=== PATIENT | female | born 1985 | race Caucasian/White ===

== ENCOUNTER 2021-06-04 14:58 | Observation (INO) ==
[2021-06-04] MEDS ORDERED: *HR* HYDROmorphone (PF) 1 MG/ML SYRINGE IVP PRN (16:33)
[2021-06-04] MEDS ORDERED: Ringers Solution, Lactated 1,000 ML IVC SCH (16:45)
[2021-06-04] MEDS ORDERED: Bupivacaine/EPI 1:200k 0.25% 50 ML VIAL ONE (18:22)
[2021-06-04] MEDS ORDERED: *HR* Propofol 200 MG/20 ML VIAL IVP ONE (18:57)
[2021-06-04] MEDS ORDERED: *HR* Rocuronium Bromide 50 MG/5 ML VIAL ONE ×2 (19:00→20:31)
[2021-06-04] MEDS ORDERED: Ondansetron 4 MG/2 ML VIAL ONE (19:00)
[2021-06-04] MEDS ORDERED: Lidocaine -MPF 2% 2 ML VIAL ONE (19:00)
[2021-06-04] MEDS ORDERED: Famotidine 20 MG/2 ML VIAL IVP ONE (19:41)
[2021-06-04] MEDS ORDERED: Scopolamine Patch 1.5 MG PATCH.TD72 TD ONE (19:41)
[2021-06-04] MEDS ORDERED: Albuterol 2.5 MG/3 ML NEBULIZER IH PRN (19:46)
[2021-06-04] MEDS ORDERED: Promethazine 6.25 MG in Water for inj. (sterile) 20 ML IVPB PRN (19:46)
[2021-06-04] MEDS ORDERED: *HR* OxyCODONE Immed Rel 5 MG TABLET PO PRN (19:46)
[2021-06-04] MEDS ORDERED: *HR* Labetalol 20 MG/4 ML SYRINGE IVP PRN (19:46)
[2021-06-04] MEDS ORDERED: *HR* HYDROmorphone PF 0.5 MG/0.5 ML SYRINGE IVP PRN (19:46)
[2021-06-04] MEDS ORDERED: Metoclopramide 10 MG/2 ML VIAL IVP PRN (19:46)
[2021-06-04] MEDS ORDERED: Ketorolac 30 MG/ML VIAL IVP PRN (19:46)
[2021-06-04] MEDS ORDERED: *HR* FentaNYL (PF) 100 MCG/2 ML VIAL ONE ×3 (20:08→21:45)
[2021-06-04] MEDS ORDERED: ceFAZolin 2,000 MG in Water for inj. (sterile) 20 ML IVP ONE (20:27)
[2021-06-04] MEDS ORDERED: Acetaminophen IV 1,000 MG/100 ML BAG IVPB ONE (21:06)
[2021-06-04] MEDS ORDERED: Sugammadex Sodium 200 MG/2 ML VIAL IV ONE (21:33)
[2021-06-04] MEDS ORDERED: Ketorolac 30 MG/ML VIAL ONE (21:35)
[2021-06-04] MEDS ORDERED: Ibuprofen 600 MG TABLET PO PRN (23:05)
[2021-06-04] MEDS ORDERED: *HR* HYDROcodone/Acet 5/325 mg TABLET PO ONE (23:05)
[2021-06-04 23:38] VITALS: BP 125/77; PULSE 65; TEMP 98.1; O2SAT 100
== END 2021-06-05 00:15 | disposition home or self-care (01) ==
LOC: 1NENUOBS
PROVIDERS: ADMIT Obstetrics & Gynecology; ATTEND Obstetrics & Gynecology